=== PATIENT | male | born 1995 | race Native Hawaiian/Other Pacific Islander ===

== ENCOUNTER 2017-05-25 03:56 | Emergency (ER) | payer SELFPAY ==
[~2017-05-25] VITALS: Ht 175.3 cm; Wt 81.0 kg
[~2017-05-25 03:56] MED LIST: CYCL-36 PO; DICL50 PO
[2017-05-25 03:58] VITALS: BP 123/58; PULSE 70; RESP 16; TEMP 98.2; O2SAT 100
[2017-05-25] MEDS ORDERED: IBUP-232 PO ×2 (04:22→04:29)
[2017-05-25] MEDS ORDERED: PENI500T PO ×2 (04:22→04:29)
[2017-05-25] MEDS ORDERED: PERI0.126 SWISH-SPIT ×2 (04:22→04:29)
[2017-05-25] MEDS ORDERED: TRAM50 PO ×2 (04:22→04:29)
--- NOTE | 2017-05-25 04:22 | PD ---
HPI Chief Complaint: Oral / Dental Pain or Problem Time Seen by Provider: 04:17 Travel History International Travel<30 days: No Contact w/Intl Traveler<30days: No Traveled to known affect area: No History of Present Illness HPI 22-year-old male with no significant medical history presents to emergency department for evaluation of right maxillary first molar pain. Patient states that this began 2 days ago. Patient reports having a bad tooth for an unknown amount of time. He has had no fever or chills. Pain is a 10 out of 10, constant, throbbing. He is unable to sleep. He states that he has a dentist appointment for today. He has no other symptoms to report. PFSH Past Medical History Medical History: Denies Significant Hx Immunizations Current: Yes Tetanus Vaccination: Unknown Influenza Vaccination: No Social History Alcohol Use: No Tobacco Use: No Substance Use: No Allergies-Medications (Allergen,Severity, Reaction): Coded Allergies: No Known Allergies (Unverified Adverse Reaction, Unknown, 05/25/17) Reported Meds & Prescriptions Reported Meds & Active Scripts Active Peridex Liq (Chlorhexidine Gluconate (Mouth) Liq) 0.12% Soln 15 Ml SWISH-SPIT BID Penicillin V Potassium 500 Mg Tab 500 Mg PO Q6H 10 Days Ultram (Tramadol HCl) 50 Mg Tab 50 Mg PO Q6H PRN Ibuprofen 600 Mg Tab 600 Mg PO Q8HR PRN Review of Systems Except as stated in HPI: all other systems reviewed are Neg Physical Exam Narrative GENERAL: Well-nourished, well-developed male patient in no acute distress SKIN: Focused skin assessment warm/dry. Without erythema or edema HEAD: Normocephalic. No swelling EYES: No scleral icterus. No injection or drainage. ENT: Mucosa pink and moist. No erythema or exudates. No uvular edema. No uvular , palatal, or tonsillar deviation. Airway patent. Nasal turbinates appear normal without nasal blood, purulent drainage or septal hematoma. DENTAL: No loose or chipped teeth. The right maxillary first molars completely decayed down to the 10 to follow-up with significant gingival erythema and edema surrounding it. No malocclusion. NECK: Supple, trachea midline. No JVD or lymphadenopathy. CARDIOVASCULAR: Regular rate and rhythm without murmurs, gallops, or rubs. RESPIRATORY: Breath sounds equal bilaterally. No accessory muscle use. Data Data Last Documented VS Vital Signs Date Time Temp Pulse Resp B/P (MAP) Pulse Ox O2 Delivery O2 Flow Rate FiO2 05/25/17 04:20 05/25/17 03:58 98.2 70 16 100 Room Air Orders Orders Tramadol (Ultram) (05/25/17 04:30) Ibuprofen (Motrin) (05/25/17 04:30) Ed Discharge Order (05/25/17 04:20) MDM Medical Decision Making Medical Screen Exam Complete: Yes Emergency Medical Condition: Yes Medical Record Reviewed: Yes Differential Diagnosis Dental caries versus dental abscess versus pulpitis versus gingivitis Narrative Course 22-year-old male presents emergency department for evaluation of dental pain. Patient has a significantly decayed maxillary first molar on the right with gingival erythema and edema. Patient is treated for pain while here. He'll be discharged home with oral antibiotics and Peridex oral rinse in addition to pain control. He is encouraged to keep this appointment with the dentist today. He agrees to return immediately with any acute worsening symptoms. Diagnosis Primary Impression: Dental caries Additional Impressions: Dentalgia Dental abscess Referrals: Dentist Primary Care Physician Patient Instructions: Dental Abscess (ED), General Instructions Additional Instructions: Follow-up with primary care provider Seek dental evaluation as soon as possible Return immediately with any acute worsening symptoms Med/Other Pt SpecificInfo: Prescription(s) given Scripts Chlorhexidine Gluconate (Mouth) Liq (Peridex Liq) 0.12% Soln 15 ML SWISH-SPIT BID, #473 ML 0 Refills Prov: Coco Del Castillo 05/25/17 Penicillin V Potassium (Penicillin V Potassium) 500 Mg Tab 500 MG PO Q6H for Infection for 10 Days, #40 TAB 0 Refills Prov: Coco Del Castillo 05/25/17 Tramadol (Ultram) 50 Mg Tab 50 MG PO Q6H Y for PAIN GREATER THAN 6, #12 TAB 0 Refills Prov: Coco Del Castillo 05/25/17 Ibuprofen (Ibuprofen) 600 Mg Tab 600 MG PO Q8HR Y for PAIN, #30 TAB 0 Refills Prov: Coco Del Castillo 05/25/17 Disposition: 01 DISCHARGE HOME Condition: Stable Coco Del Castillo May 25, 2017 04:22
[2017-05-25] MEDS ORDERED: traMADol HCL 50 MG TAB PO ONE (04:30)
[2017-05-25] MEDS ORDERED: IBUPROFEN 600 MG TAB PO ONE (04:30)
== END 2017-05-25 04:38 | disposition home or self-care (01) ==
LOC: NEPD 03:56
DX: K02.9 Dental caries, unspecified (principal); K04.7 Periapical abscess without sinus; Z79.899 Other long term (current) drug therapy
CPT/HCPCS: 99284

== ENCOUNTER 2017-07-05 01:22 | Emergency (ER) | payer SELFPAY ==
[~2017-07-05] VITALS: Ht 177.8 cm; Wt 75.0 kg
[~2017-07-05 01:22] MED LIST changes: -CYCL-36 PO; -DICL50 PO; +IBUP-232 PO; +PENI500T PO; +PERI0.126 SWISH-SPIT; +TRAM50 PO
[2017-07-05 01:24] VITALS: BP 127/71; PULSE 68; RESP 16; TEMP 98.6; O2SAT 99
[2017-07-05] MEDS ORDERED: TRAM50 PO (01:39)
[2017-07-05] MEDS ORDERED: CLEO300C2 PO (01:39)
[2017-07-05] MEDS ORDERED: ACETAMINOPHEN/HYDROcodone 325 MG/5 MG TAB PO ONE (01:45)
[2017-07-05] MEDS ORDERED: CLINDAMYCIN 600 MG/NS PREMIX 50 ML IV ONE (01:45)
--- NOTE | 2017-07-05 01:50 | PD ---
HPI Chief Complaint: Oral / Dental Pain or Problem Time Seen by Provider: 01:33 Travel History International Travel<30 days: No Contact w/Intl Traveler<30days: No Traveled to known affect area: No History of Present Illness HPI 22-year-old male presents emergency department with complaints of dental pain and facial swelling. He states that he has a tooth that has had a cavity in it which has been bothering him for several days. Today it got much worse and he had some swelling and pain. No exacerbating or alleviating factors. Pain is moderate. PFSH Past Medical History Medical History: Denies Significant Hx Immunizations Current: Yes Tetanus Vaccination: < 5 Years Influenza Vaccination: No Past Surgical History Surgical History: No Previous Surgery Social History Alcohol Use: No Tobacco Use: No Substance Use: No Allergies-Medications (Allergen,Severity, Reaction): Coded Allergies: No Known Allergies (Unverified Adverse Reaction, Unknown, 07/05/17) Reported Meds & Prescriptions Reported Meds & Active Scripts Active Ultram (Tramadol HCl) 50 Mg Tab 50 Mg PO Q4H PRN Cleocin (Clindamycin HCl) 300 Mg Cap 300 Mg PO Q6H 10 Days Review of Systems Except as stated in HPI: all other systems reviewed are Neg HENT: Positive: Dental Difficulties, No: Sore Throat, Congestion, Gingival Bleeding, Ear Discharge, Earache Physical Exam Narrative GENERAL: Well-developed, well-nourished in no acute distress. Nontoxic appearing. HEAD: Normocephalic, patient has mild right maxillary swelling and tenderness.. EYES: Pupils equal round and reactive. Extraocular motions intact. No scleral icterus. No injection or drainage. ENT: TMs clear without erythema. The external auditory canals clear. Nose: clear . Posterior pharynx is pink and moist. No tonsillar edema or exudate. Uvula midline. Airway patent. Patient has a large dental caries in tooth #5. There is gingival erythema and edema. NECK: Trachea midline.Supple, nontender, moves head freely. No central bony tenderness or spasm. CARDIOVASCULAR: Regular rate and rhythm without murmurs, gallops, or rubs. RESPIRATORY: Clear to auscultation. Breath sounds equal bilaterally. No wheezes , rales, or rhonchi. GASTROINTESTINAL: Abdomen soft, non-tender, nondistended. No hepato-splenomegaly , or palpable masses. No guarding. EXTREMITIES: No clubbing, cyanosis, or edema. No joint tenderness, effusion, or edema noted. BACK: Nontender without deformity or crepitance. No flank tenderness. Data Data Last Documented VS Vital Signs Date Time Temp Pulse Resp B/P (MAP) Pulse Ox O2 Delivery O2 Flow Rate FiO2 07/05/17 01:44 07/05/17 01:24 98.6 68 16 99 Room Air Orders Orders Clindamycin 600 Mg/Ns Premix (Cleocin 60 (07/05/17 01:45) Acetamin-Hydrocod 325-5 Mg ([place] 5-325 (07/05/17 01:45) Ed Discharge Order (07/05/17 01:39) MDM Medical Decision Making Medical Screen Exam Complete: Yes Emergency Medical Condition: Yes Medical Record Reviewed: Yes Differential Diagnosis MDM: Moderate Differential diagnoses: Dental abscess, dental caries, osteitis, cellulitis Narrative Course Patient is given clindamycin 600 mg IV, and 1 Lortab 5 mg p.o. Diagnosis Primary Impression: Dental abscess with facial cellulitis Patient Instructions: Narcotic given in the ED, General Instructions Additional Instructions: Rest. [place] gargles. [place] oil on cotton balls. 3 Advil every 6 hours. Clindamycin and Ultram. follow-up with a dentist as soon as possible. And return to the ER if any problems. Med/Other Pt SpecificInfo: Prescription(s) given Scripts Tramadol (Ultram) 50 Mg Tab 50 MG PO Q4H Y for PAIN, #12 TAB 0 Refills Prov: Helen Menendez MD 07/05/17 Clindamycin (Cleocin) 300 Mg Cap 300 MG PO Q6H for Infection for 10 Days, #40 CAP 0 Refills Prov: Helen Menendez MD 07/05/17 Disposition: 01 DISCHARGE HOME Condition: Stable Dev Montalvo Jul 05, 2017 01:50
== END 2017-07-05 03:10 | disposition home or self-care (01) ==
LOC: NEPD 01:22
DX: K04.7 Periapical abscess without sinus (principal); L03.211 Cellulitis of face
CPT/HCPCS: 96365